=== PATIENT | female | born 1990 | race Caucasian/White ===

== ENCOUNTER 2018-05-11 17:56 | Emergency (ER) | payer SELFPAY ==
[2018-05-11] MEDS ORDERED: Sodium Chloride 0.9% 1,000 ML IV STA (18:51)
--- NOTE | 2018-05-11 18:53 | C.PDOC ---
History Of Present Illness 28 y/o F c no PMHx p/w abdominal pain x 1 week. Pain is diffuse, nonradiating, gradually worsening, associated with nausea and nonbloody diarrhea. Denies fever , chills, vomiting, dysuria, recent travel, camping/hiking. Time Seen by Provider: 05/11/18 18:07 Chief Complaint (Nursing): Abdominal Pain Past Medical History Vital Signs: Last Vital Signs Temp 98.3 F 05/11/18 17:59 Pulse 60 05/11/18 20:07 Resp 14 05/11/18 20:07 BP 116/78 05/11/18 20:07 Pulse Ox 99 05/11/18 20:07 - Medical History PMH: Gall Bladder Disease (stones removed) Surgical History: Cholecystectomy - [facility] Procedures MONITORING NOS (01/17/15) LOW CERVICAL (01/17/15) Family History: States: Unknown Family Hx - Social History Hx Tobacco Use: No Hx Alcohol Use: Yes Hx Substance Use: No - Immunization History Hx Tetanus Toxoid Vaccination: Yes Hx Influenza Vaccination: No Hx Pneumococcal Vaccination: Yes Review Of Systems Except As Marked, All Systems Reviewed And Found Negative. Constitutional: Negative for: Fever Cardiovascular: Negative for: Chest Pain Physical Exam - Physical Exam Additional Physical Exam Comments: Constitutional: No acute distress. Head: Normocephalic. Atraumatic. Eyes: PERRL. ENT: Moist mucous membranes. Neck: Supple. Cardiovascular: Regular rate. Radial pulse 2+ bilaterally. Chest: No tenderness. Respiratory: Clear to auscultation bilaterally. GI: Diffuse abdominal tenderness with guarding. No rebound. Nondistended. Back: No CVA tenderness. Musculoskeletal: No tenderness or swelling of extremities. Skin: No rash. Neurologic: Alert, no focal deficit. ED Course And Treatment - Laboratory Results Result Diagrams: 05/11/18 18:54 05/11/18 18:54 O2 Sat by Pulse Oximetry: 100 (RA) Pulse Ox Interpretation: Normal Medical Decision Making Medical Decision Making: IMPRESSION: No acute obstructive or inflammatory process in the abdomen or pelvis. Patient states feels little better. Vitals normal, labs unremarkable. Will discharge, f/u PMD, return to ED for worsening pain, fever, vomiting, or any other problem. Disposition - Disposition Disposition: HOME/ ROUTINE Disposition Time: 20:50 Condition: STABLE Prescriptions: Famotidine/Ca Carb/Mag Hydrox [Pepcid Complete Tablet Chew] 1 each PO BID #28 tab.chew Ondansetron ODT [Zofran ODT] 4 mg PO Q8 #12 odt Instructions: Acute Abdomen (Belly Pain) Forms: [facility] (Faroese) - Clinical Impression Clinical Impression: Abdominal pain - Scribe Statement The provider has reviewed the documentation as recorded by the Scribe Patel Do Provider Attestation: All medical record entries made by the Scribe were at my direction and personally dictated by me. I have reviewed the chart and agree that the record accurately reflects my personal performance of the history, physical exam, medical decision making, and the department course for this patient. I have also personally directed, reviewed, and agree with the discharge instructions and disposition.
[2018-05-11] MEDS ORDERED: Morphine 4 MG/ML VIAL ONE (18:57)
[2018-05-11] MEDS ORDERED: Sodium Chloride 0.9% 1,000 ML ONE (18:57)
[2018-05-11 18:58] LABS: BASO % 0.5 % (0.0-2.0); EOS # 0.2 K/uL (0.0-0.7); EOS % 2.8 % (0.0-4.0); LYMPH # 2.4 K/uL (1.0-4.3); LYMPH % 30.3 % (20.0-40.0); MEAN CELL VOLUME 88.7 fL (81.0-99.0); MEAN CORPUSCULAR HEMOGLOBIN 30.4 pg (27.0-31.0); MEAN CORPUSCULAR HGB CONC 34.2 g/dL (33.0-37.0); MEAN PLATELET VOLUME 8.8 fL (7.2-11.7); MONO # 0.6 K/uL (0.0-0.8); MONO % 7.9 % (0.0-10.0); NEUT # 4.6 K/uL (1.8-7.0); NEUT % 58.5 % (50.0-75.0); RBC 4.61 Mil/uL (3.80-5.20); RED CELL DISTRIBUTION WIDTH 13.3 % (11.5-14.5); WHITE BLOOD COUNT 7.8 K/uL (4.8-10.8)
[2018-05-11 19:00] LABS: SQUAMOUS EPITHIAL 1 /hpf (0-5); URINE BACTERIA RARE (<OCC); URINE BILIRUBIN NEGATIVE (NEGATIVE); URINE BLOOD NEGATIVE (NEGATIVE); URINE CLARITY Clear (Clear); URINE COLOR Yellow (YELLOW); URINE GLUCOSE (UA) NORMAL (Normal); URINE LEUKOCYTE ESTERASE NEG Leu/uL (Negative); URINE PROTEIN NEGATIVE (NEGATIVE); URINE UROBILINOGEN NORMAL mg/dL (0.2-1.0)
[2018-05-11 19:01] LABS: HCG,QUALITATIVE URINE NEGATIVE (NEGATIVE)
[2018-05-11 19:13] LABS: ALB/GLOB RATIO 1.5 (1.0-2.1); ALBUMIN 4.6 g/dL (3.5-5.0); ALT/SGPT 29 U/L (9-52); AST/SGOT 24 U/L (14-36); BLOOD UREA NITROGEN 10 mg/dL (7-17); CALCIUM 9.6 mg/dl (8.6-10.4); GFR NON-AFRICAN AMERICAN > 60; LIPASE 104 U/L (23-300)
[2018-05-11] MEDS ORDERED: Iodixanol 320 MG/ML 100 ML BOTTLE IV ONE (20:01)
[2018-05-11 21:15] VITALS: BP 106/72; PULSE 58; RESP 16; TEMP 98.7; O2SAT 99
--- NOTE | 2018-05-12 10:18 | CT ---
Date of service: 05/11/2018 PROCEDURE: CT Abdomen and Pelvis with intravenous contrast HISTORY: Abdominal pain COMPARISON: None. TECHNIQUE: Axial images of the abdomen were obtained following intravenous contrast contrast injection. Coronal and sagittal reformats were generated. Contrast dose: 100 cc Visipaque 320 Radiation dose: Total exam DLP = 769.08 mGy-cm. This CT exam was performed using one or more of the following dose reduction techniques: Automated exposure control, adjustment of the mA and/or kV according to patient size, and/or use of iterative reconstruction technique. FINDINGS: LOWER THORAX: Heart size normal. No significant pericardial effusion. Tiny hiatal hernia. The lung bases are free of focal consolidation. No effusion or basilar pneumothorax LIVER: Liver is mildly enlarged measuring nearly 20 cm in CC dimension. There is mild fatty hepatic infiltration. GALLBLADDER AND BILE DUCTS: Cholecystectomy. There is mild dilatation of common bile duct felt be post cholecystectomy sequela PANCREAS: Unremarkable. No gross lesion or ductal dilatation. SPLEEN: Unremarkable. ADRENALS: Unremarkable. No mass. KIDNEYS AND URETERS: Unremarkable. No hydronephrosis. No solid mass. VASCULATURE: Unremarkable. No aortic aneurysm. BOWEL: Evaluation of the bowel is limited due to the lack of oral contrast material. The stomach is partially distended with food debris liquid and air. The the the the The visualized loops of small bowel exhibit normal contour and caliber. No evidence acute mechanical small bowel obstruction. Stool and air seen throughout the large bowel. APPENDIX: Normal appendix best seen on coronal sequence series 601 image number [id number]. No periapical appendiceal inflammatory changes. PERITONEUM: Unremarkable. No free fluid. No free air. LYMPH NODES: Unremarkable. No enlarged lymph nodes. BLADDER: Urinary bladder is incompletely distended which in part accounts for thick-walled appearance. Correlation with urinalysis recommended to exclude cystitis. REPRODUCTIVE: In situ tampon BONES: No acute fracture. OTHER FINDINGS: Note made of the vague areas of infiltration within the subcutaneous tissues nonspecific. IMPRESSION: Cholecystectomy with mild dilatation of the common bile duct. Mild hepatomegaly with fatty hepatic infiltration No acute intra abdominal pathology.
== END 2018-05-11 21:15 | disposition home or self-care (01) ==
LOC: C.ER 17:56
DX: R10.9 Unspecified abdominal pain (principal)
CPT/HCPCS: 74177; 80053; 81001; 83690; 84703; 85025; 87086; 96361; 96374; 96375; 99285; J2270; J2405; J7030; Q9967